=== PATIENT | female | born 1945 | race Caucasian/White ===

== ENCOUNTER 2021-07-10 07:54 | Outpatient (CLI) | payer MEDICARE ==
[~2021-07-10 07:54] MED LIST: ASPI-107 PO; CYAN500T71 PO; LOSA1TAB41 PO; OMEG1CAP PO; VITA150T PO
== END 2021-07-10 23:59 | disposition home or self-care (01) ==
LOC: CARD DIAG 07:54
PROVIDERS: ATTEND Nurse Practitioner
DX: I08.0 Rheumatic disorders of both mitral and aortic valves (principal)
CPT/HCPCS: 93306

== ENCOUNTER 2021-08-17 13:42 | Emergency (ER) | payer MEDICARE ==
[~2021-08-17] VITALS: Ht 154.9 cm; Wt 65.0 kg
[2021-08-17] MEDS ORDERED: cloNIDine 0.1 mg tablet PO ONE (14:05)
[2021-08-17 14:28] LABS: BASOPHILS # (AUTO) 0.1 X10'3 (0-0.2); BASOPHILS % (AUTO) 1.1 % (0-1); EOSINOPHILS # (AUTO) 0.2 X10'3 (0-0.9); EOSINOPHILS % (AUTO) 2.4 % (0-6); HEMATOCRIT 37.9 % (35.0-45.0); LYMPHOCYTES # (AUTO) 2.2 X10'3 (1.1-4.8); LYMPHOCYTES % (AUTO) 34.9 % (21-51); MEAN CORPUSCULAR HGB CONC 34.2 g/dL (33.0-36.5); MEAN CORPUSCULAR VOLUME 93.5 FL (78-98); MEAN PLATELET VOLUME 7.4 FL (7.4-10.4); MONOCYTES # (AUTO) 0.6 X10'3 (0-0.9); MONOCYTES % (AUTO) 9.8 % (2-12); NEUTROPHILS # (AUTO) 3.3 X10'3 (1.8-7.7); NEUTROPHILS % (AUTO) 51.8 % (42-75); PLATELET COUNT 338 X10'3 (140-440); RED BLOOD COUNT 4.05 X10'6 (4.20-5.60); RED CELL DISTRIBUTION WIDTH 14.8 % (11.5-14.5); WHITE BLOOD COUNT 6.4 X10'3 (4.5-11.0)
[2021-08-17 14:46] LABS: ALANINE AMINOTRANSFERASE 29 U/L (12-78); ALBUMIN 3.9 G/DL (3.4-5.0); ALKALINE PHOSPHATASE 212 IU/L (46-116); ANION GAP 9 (8-16); ASPARTATE AMINO TRANSFERASE 30 U/L (10-37); BILIRUBIN,TOTAL 0.3 MG/DL (0.1-1.0); BLOOD UREA NITROGEN 11 MG/DL (7-18); BUN/CREATININE RATIO 16.4 (6.6-38.0); CALCIUM 9.3 MG/DL (8.5-10.1); CHLORIDE 102 MMOL/L (99-107); CREATININE 0.67 MG/DL (0.40-0.90); GLUCOSE 103 MG/DL (70-104); SODIUM 141 MMOL/L (135-145); TOTAL CARBON DIOXIDE 29.8 MMOL/L (24-32); TOTAL PROTEIN 7.7 G/DL (6.4-8.2); eGFR 85 ML/MIN
[2021-08-17] MEDS ORDERED: LOSA50TA64 PO (15:46)
[2021-08-17] MEDS ORDERED: LOSA100T57 PO (15:46)
[2021-08-17 16:20] VITALS: BP 145/83
== END 2021-08-17 16:23 | disposition home or self-care (01) ==
LOC: ER 13:42
DX: I10 Essential (primary) hypertension (principal); E07.9 Disorder of thyroid, unspecified; Z79.899 Other long term (current) drug therapy
CPT/HCPCS: 36415; 80053; 85025; 99283